=== PATIENT | male | born 1950 | race Caucasian/White ===

== ENCOUNTER 2019-10-09 05:52 | Day surgery (SDC) | payer MEDICARE, OTHER ==
[2019-10-03 17:01] LABS: BASOPHILS % (AUTO) 0.3 % (0-1); EOSINOPHILS # (AUTO) 0.3 X10'3 (0-0.9); EOSINOPHILS % (AUTO) 3.8 % (0-6); LYMPHOCYTES # (AUTO) 2.3 X10'3 (1.1-4.8); LYMPHOCYTES % (AUTO) 26.3 % (21-51); MEAN CORPUSCULAR HEMOGLOBIN 31.4 PG (27.0-31.0); MEAN CORPUSCULAR HGB CONC 34.4 g/dL (33.0-36.5); MEAN CORPUSCULAR VOLUME 91.3 FL (78-98); MEAN PLATELET VOLUME 8.1 FL (7.4-10.4); MONOCYTES # (AUTO) 0.6 X10'3 (0-0.9); MONOCYTES % (AUTO) 6.6 % (2-12); NEUTROPHILS # (AUTO) 5.5 X10'3 (1.8-7.7); PRE OP HEMATOCRIT 44.9 % (42.0-52.0); PRE OP HEMOGLOBIN 15.5 g/dL (14.0-17.9); PRE OP PLATELET COUNT 300 X10'3 (140-440); RED BLOOD COUNT 4.92 X10'6 (4.70-6.10); RED CELL DISTRIBUTION WIDTH 12.7 % (11.5-14.5)
[2019-10-03 17:09] LABS: PRE OP PROTIME 9.9 SECONDS (9.0-12.0)
[2019-10-03 17:13] LABS: ALBUMIN 3.5 G/DL (3.4-5.0); ALBUMIN/GLOBULIN RATIO 1.1 (1.1-1.5); ALKALINE PHOSPHATASE 75 IU/L (46-116); BLOOD UREA NITROGEN 16 MG/DL (7-18); BUN/CREATININE RATIO 11.1 (5.4-32.0); CALCIUM 8.4 MG/DL (8.5-10.1); CHLORIDE 106 MMOL/L (99-107); CREATININE 1.44 MG/DL (0.60-1.10); PRE OP ALT 20 U/L (30-65); PRE OP ANION GAP 9 (8-16); PRE OP AST 18 U/L (10-37); PRE OP BILIRUB, TOTAL 0.4 MG/DL (0.0-1.0); PRE OP GLUCOSE 111 MG/DL (70-104); PRE OP POTASSIUM 3.9 MMOL/L (3.4-5.1); PRE OP SODIUM 142 MMOL/L (135-145); TOTAL CARBON DIOXIDE 26.6 MMOL/L (24-32); TOTAL PROTEIN 6.8 G/DL (6.4-8.2); eGFR 49 ML/MIN
[2019-10-09] VITALS (23 sets, daily range): BP systolic 129–161; BP diastolic 64–96
[~2019-10-09] VITALS: Ht 182.9 cm; Wt 122.5 kg
[~2019-10-09 05:52] MED LIST: AMLO10TA PO; ATOR20TA PO; CLOP75TA35 PO; LISI40TA4 PO; famotidine 20mg tablet PO ONE; ringers solution, lacted 1,000 ML IV SCH
[2019-10-09] MEDS ORDERED: mupirocin 2% ointment 22GM ONE (06:44)
[2019-10-09] MEDS ORDERED: LIDOcaine 1% W/epiNEPHrine 1:100,000 20ml vial ONE (06:44)
[2019-10-09] MEDS ORDERED: methylPREDNISolone acetate 80mg/ml inj**IM only ONE (06:44)
[2019-10-09] MEDS ORDERED: triamcinolone acetonide 40mg/ml inj ONE (06:44)
[2019-10-09] MEDS ORDERED: cefTAZidime 1gm inj ONE (06:44)
[2019-10-09] MEDS ORDERED: cocaine 4% topical solution 4ml bottle ONE (06:44)
[2019-10-09] MEDS ORDERED: oxymetazoline 15 ML nasal spray NS ONE ×2 (06:45→06:56)
[2019-10-09] MEDS ORDERED: BUPIVAcaine 0.5% W/EPI /PF 30ml vial ONE (06:45)
[2019-10-09] MEDS ORDERED: propofol inj 20 ML IV ONE (08:08)
[2019-10-09] MEDS ORDERED: LIDOcaine 2% (20mg/ml) 5ml vial ONE (08:08)
[2019-10-09] MEDS ORDERED: rocuronium 10mg/ml inj IV ONE (08:09)
[2019-10-09] MEDS ORDERED: desflurane 240ml liquid inh. IH ONE (08:12)
[2019-10-09] MEDS ORDERED: acetaminophen 1000 MG/100ml vial IV ONE (08:12)
[2019-10-09] MEDS ORDERED: sevoflurane 250ml liquid IH ONE (08:12)
[2019-10-09] MEDS ORDERED: midazolam 2 mg/2 ml injection ONE (08:18)
[2019-10-09] MEDS ORDERED: fentaNYL /PF 50mcg/ml 5ml ampule ONE (08:19)
[2019-10-09] MEDS ORDERED: dexamethasone sod phosphate 4mg/ml inj. ONE (08:38)
[2019-10-09] MEDS ORDERED: ondansetron/PF 4mg/2ml inj ONE (08:54)
[2019-10-09] MEDS ORDERED: ePHEDrine 50MG/ML INJ. ONE (08:59)
[2019-10-09] MEDS ORDERED: ringers solution, lacted 1,000 ML IV SCH (09:04)
[2019-10-09] MEDS ORDERED: meperidine/PF 25mg/ml syringe IV PRN ×3 (09:05)
[2019-10-09] MEDS ORDERED: ondansetron/PF 4mg/2ml inj IV PRN (09:05)
[2019-10-09] MEDS ORDERED: proCHLORperazine 10 MG/2 ml inj IV PRN (09:05)
[2019-10-09] MEDS ORDERED: morphine 2 MG/ML inj. syringe IV PRN (09:05)
[2019-10-09] MEDS ORDERED: morphine 4 MG/ML inj SYRINge IV PRN (09:05)
--- NOTE | 2019-10-09 10:22 | NUR ---
RECIEVED FROM OR VIA GURNEY ACCOMPANIED BY ANESTHESIOLOGIST DR ROMAN, REPORT GIVEN. PT DROWSY BUT AWAKENS WITH STATED PAIN LEVEL OF 0. 20 GAUGE PIV R FA PATENT AND RUNNING LR AT 100 ML/HR. LARA, ABD SOFT, VSS, COTTENOID SPONGES IN BILATERAL NARES.
[2019-10-09] MEDS ORDERED: salt irrigation nasal spray 45 ML SPRAY NS PRN (10:40)
[2019-10-09] MEDS ORDERED: oxymetazoline 15 ML nasal spray NS SCH ×2 (10:59→20:00)
[2019-10-09] MEDS ORDERED: mupirocin 2% ointment 22GM TP SCH ×2 (11:00→13:00)
--- NOTE | 2019-10-09 14:02 | NUR ---
TRANSPORTED VIA WHEELCHAIR TO FRIEND IN PERSONAL VEHICLE TO HOME. DISCHARGE INSTRUCTIONS GIVEN AND PT VERBALIZED UNDERSTANDING.PT ALERT AND AWAKE WITH STATED PAIN LEVEL OF 0. 20 GAUGE PIV R FA D/CD WITH CATH TIP INTACT. LARA, ABD SOFT, VSS, MUSTACHE DRESSING WITH 4X4 WITH SCANT DRAINAGE. TOLERATING FLUIDS WELL, URINATING WELL, D/C CRITERIA MET.
== END 2019-10-09 14:02 | disposition home or self-care (01) ==
LOC: PAS 05:52
PROVIDERS: ATTEND Otolaryngology
DX: J34.2 Deviated nasal septum (principal); J34.3 Hypertrophy of nasal turbinates; J34.89 Other specified disorders of nose and nasal sinuses; J33.8 Other polyp of sinus; J32.8 Other chronic sinusitis; I10 Essential (primary) hypertension; E66.9 Obesity, unspecified; Z68.36 Body mass index [BMI] 36.0-36.9, adult; Z79.01 Long term (current) use of anticoagulants; Z79.899 Other long term (current) drug therapy; Z87.891 Personal history of nicotine dependence; Z86.73 Personal history of transient ischemic attack (TIA), and cerebral infarction without residual deficits; Z72.89 Other problems related to lifestyle; Z11.59 Encounter for screening for other viral diseases
CPT/HCPCS: 30140; 30520; 31240; 31254; 31267; 36415; 61782; 80053; 82948; 85025; 85576; 85610; 85730; 87635; A6402; C1726; C9250; J0131; J0713; J1040; J1100; J2001; J2250; J2405; J2704; J3010; J3301; J7040; J7120; 88300; 88304; 88311; A4618; A7000

== ENCOUNTER 2019-11-13 07:28 | Observation (INO) | payer MEDICARE, OTHER ==
[2019-11-06 14:07] LABS: BASOPHILS % (AUTO) 0.6 % (0-1); EOSINOPHILS # (AUTO) 0.2 X10'3 (0-0.9); EOSINOPHILS % (AUTO) 2.2 % (0-6); LYMPHOCYTES # (AUTO) 1.9 X10'3 (1.1-4.8); LYMPHOCYTES % (AUTO) 23.6 % (21-51); MEAN CORPUSCULAR HGB CONC 32.9 g/dL (33.0-36.5); MEAN CORPUSCULAR VOLUME 91.2 FL (78-98); MEAN PLATELET VOLUME 7.4 FL (7.4-10.4); MONOCYTES # (AUTO) 0.5 X10'3 (0-0.9); NEUTROPHILS # (AUTO) 5.3 X10'3 (1.8-7.7); NEUTROPHILS % (AUTO) 67.6 % (42-75); PRE OP HEMATOCRIT 42.8 % (42.0-52.0); PRE OP PLATELET COUNT 292 X10'3 (140-440); RED BLOOD COUNT 4.69 X10'6 (4.70-6.10); RED CELL DISTRIBUTION WIDTH 12.9 % (11.5-14.5)
[2019-11-06 14:16] LABS: ALBUMIN 3.8 G/DL (3.4-5.0); ALBUMIN/GLOBULIN RATIO 1.1 (1.1-1.5); ALKALINE PHOSPHATASE 83 IU/L (46-116); BLOOD UREA NITROGEN 16 MG/DL (7-18); BUN/CREATININE RATIO 11.3 (5.4-32.0); CHLORIDE 107 MMOL/L (99-107); CREATININE 1.42 MG/DL (0.60-1.10); PRE OP ALT 35 U/L (30-65); PRE OP ANION GAP 8 (8-16); PRE OP AST 19 U/L (10-37); PRE OP BILIRUB, TOTAL 0.6 MG/DL (0.0-1.0); PRE OP GLUCOSE 96 MG/DL (70-104); PRE OP POTASSIUM 4.2 MMOL/L (3.4-5.1); PRE OP SODIUM 142 MMOL/L (135-145); TOTAL CARBON DIOXIDE 26.6 MMOL/L (24-32); TOTAL PROTEIN 7.2 G/DL (6.4-8.2); eGFR 49 ML/MIN
[~2019-11-13] VITALS: Ht 182.9 cm; Wt 122.5 kg
[2019-11-13] VITALS (23 sets, daily range): BP systolic 124–156; BP diastolic 66–85
[2019-11-13] MEDS: mupirocin 2% nasal ointment 1gm UD NS SCH (08:00)
[2019-11-13] MEDS: oxymetazoline 15 ML nasal spray NS PRN ×5 (08:15→20:28)
[2019-11-13] MEDS ORDERED: ringers solution, lacted 1,000 ML IV SCH ×2 (09:05→09:07)
[2019-11-13] MEDS ORDERED: meperidine/PF 25mg/ml syringe IV PRN ×6 (09:05→09:10)
[2019-11-13] MEDS ORDERED: proCHLORperazine 10 MG/2 ml inj IV PRN ×2 (09:05→09:10)
[2019-11-13] MEDS ORDERED: ondansetron/PF 4mg/2ml inj IV PRN ×2 (09:05→09:10)
[2019-11-13] MEDS ORDERED: morphine 2 MG/ML inj. syringe IV PRN ×2 (09:05→09:10)
[2019-11-13] MEDS ORDERED: morphine 4 MG/ML inj SYRINge IV PRN ×2 (09:05→09:10)
[2019-11-13] MEDS ORDERED: methylPREDNISolone acetate 80mg/ml inj**IM only ONE (09:19)
[2019-11-13] MEDS ORDERED: cocaine 4% topical solution 4ml bottle ONE (09:19)
[2019-11-13] MEDS ORDERED: triamcinolone acetonide 40mg/ml inj ONE (09:19)
[2019-11-13] MEDS ORDERED: LIDOcaine 1% W/epiNEPHrine 1:100,000 20ml vial ONE (09:20)
[2019-11-13] MEDS ORDERED: mupirocin 2% ointment 22GM ONE (09:20)
[2019-11-13] MEDS ORDERED: oxymetazoline 15 ML nasal spray NS ONE (09:20)
[2019-11-13] MEDS ORDERED: BUPIVAcaine 0.5% W/EPI /PF 30ml vial ONE (09:20)
[2019-11-13] MEDS ORDERED: cefTAZidime 1gm inj ONE (09:20)
[2019-11-13] MEDS ORDERED: midazolam 2 mg/2 ml injection ONE (10:51)
[2019-11-13] MEDS ORDERED: fentaNYL /PF 50mcg/ml 5ml ampule ONE (10:52)
[2019-11-13] MEDS ORDERED: propofol inj 20 ML IV ONE (10:52)
[2019-11-13] MEDS ORDERED: LIDOcaine 2% (20mg/ml) 5ml vial ONE (10:52)
[2019-11-13] MEDS ORDERED: ondansetron/PF 4mg/2ml inj ONE (10:53)
[2019-11-13] MEDS ORDERED: rocuronium 10mg/ml inj IV ONE (10:53)
[2019-11-13] MEDS ORDERED: desflurane 240ml liquid inh. IH ONE (11:03)
[2019-11-13] MEDS ORDERED: dexamethasone sod phosphate 10mg/ml inj ONE (11:03)
[2019-11-13] MEDS ORDERED: ePHEDrine 50MG/ML INJ. ONE (12:10)
[2019-11-13] MEDS ORDERED: acetaminophen 1,000mg/100ml IV 100 ML IV ONE (12:17)
[2019-11-13] MEDS ORDERED: albumin (Human) 5% 250ml 250 ML IV ONE (12:17)
--- NOTE | 2019-11-13 12:52 | NUR ---
Received from OR via [facility], accompanied by Anesthesiologist DR DYKES and report given by Anesthesiologist. PT DROWSY, DENIES PAIN, BILAT COTTONNOIDS IN PTS NARES. Addendum: 11/13/19 at 1318 by Annel Albert RN Amended: Links added.
[2019-11-13] MEDS ORDERED: HYDROcodone/acetaminophen 5mg/325mg tablet PO PRN (13:20)
[2019-11-13] MEDS ORDERED: ondansetron 4mg rapidly disintigrating tab PO PRN (13:20)
[2019-11-13] MEDS: amLODIPine 5mg tablet PO SCH (13:20)
[2019-11-13] MEDS ORDERED: mupirocin 2% ointment 22GM TP SCH (13:20)
[2019-11-13] MEDS: lisinopril 20mg tablet PO SCH (14:22)
--- NOTE | 2019-11-13 14:26 | NUR ---
Patient in room . I have received report from CHRISTINA Up and had the opportunity to ask questions and assume patient care.
--- NOTE | 2019-11-13 14:42 | NUR ---
Report called to receiving nurse. Transferred via GURNEY, PT WAS ABLE TO TRANSFER OVER ONTO BED W/SLIDE BOARD W/O DIFFUCILTY, ALL Belongings AND GLASSES SENT W/PT TO ROOM 348A, RECEIVING RN AT BEDSIDE TO RECEIVE PT, BLL, CALL LIGHT GIVEN, SIDE RAILS UP X 2, D/C INSTUCTIONS GONE OVER W/PTS RN FOR TOMORROWS D/C. Special Issues communicated to receiving nurse.YES. Addendum: 11/13/19 at 1513 by Annel Albert RN Amended: Links added.
[2019-11-13] MEDS ORDERED: oxymetazoline 15 ML nasal spray NS PRN (16:15)
[2019-11-13] MEDS: salt irrigation nasal spray 45 ML SPRAY NS SCH ×5 (16:21→21:59)
[2019-11-13] MEDS ORDERED: oxymetazoline 15 ML nasal spray NS SCH (16:57)
--- NOTE | 2019-11-13 18:05 | NUR ---
Patient in room [facility]. I have received report from CHRISTINA Martin and had the opportunity to ask questions and assume patient care.
--- NOTE | 2019-11-13 18:48 | NUR ---
Problems reprioritized. Patient report given, questions answered & plan of care reviewed with Nyasia Garber RN. mild active nose bleeding. dressing changed x4. Dr Campos called in stating its expected to have nose bleeding until past 24hr of surgery time. Pt is expected to be going home tomorrow morning.
[2019-11-13] MEDS ORDERED: atorvastatin 20mg tablet PO SCH ×2 (21:00)
[2019-11-14] VITALS: BP 131/76
--- NOTE | 2019-11-14 00:18 | NUR ---
Notified MD that I have changed the nasal dressing several times tonight including three times this past hour as well as several clots being pulled from the nares. Updated as to BP 125/83 and a HR of 115. MD states to stop use of afrin and saline nasal spray and to expect the dressing to be changed several times per hour. Md does not want to increase fluid rate of LR @ 20; and does not want an H/H for the AM. Continue dressing changes as needed.
[2019-11-14] MEDS: mupirocin 2% nasal ointment 1gm UD NS SCH (02:12)
[2019-11-14 02:33] VITALS: BP 116/78
[2019-11-14 04:12] VITALS: BP 131/71
--- NOTE | 2019-11-14 04:13 | NUR ---
Patients nasal drainage has significantly dropped/stopped over the last hour. Last nasal dressing change at approximately 0300; very little drainage on current dressing.
[2019-11-14 04:30] VITALS: BP 130/72
--- NOTE | 2019-11-14 05:26 | NUR ---
Confirmed patient is not diabetic. Changed diet from CC to regular.
--- NOTE | 2019-11-14 06:10 | NUR ---
Patient in room [facility]. I have received report from Nyasia Garber RN and had the opportunity to ask questions and assume patient care.
--- NOTE | 2019-11-14 06:13 | NUR ---
Problems reprioritized. Patient report given, questions answered & plan of care reviewed with CHRISTINA Kaiser.
[2019-11-14 08:00] VITALS: BP 130/82
[2019-11-14] MEDS ORDERED: non-formulary drug (Lisinopril* 1 TAB) PO SCH (08:00)
[2019-11-14] MEDS ORDERED: non-formulary drug (Amlodipine Besylate 1 TABLET) PO SCH (08:00)
[2019-11-14 08:03] VITALS: BP_SYST 130
[2019-11-14] MEDS: lisinopril 20mg tablet PO SCH (08:03)
[2019-11-14] MEDS: amLODIPine 5mg tablet PO SCH (08:03)
--- NOTE | 2019-11-14 08:10 | NUR ---
Patient requested not to have his Mupirocin ointment given intranasal yet at this time because the nose just had stopped bleeding. Blood clots noted in the bilateral nasal cavity
--- NOTE | 2019-11-14 08:30 | NUR ---
Per Dr. Campos, patient is good to be discharge today. He asked me to ask one of the Recovery Room nurse to help with how to discharge this patient because they are familiar with discharging this type of patient. Annel VASQUEZ from PACU came by to give instruction to patient about saline rinsing and to follow the written discharge instruction that he will be receiving.
[2019-11-14] MEDS ORDERED: AFRIN NS (08:57)
[2019-11-14] MEDS ORDERED: MUPI1OIN5 NS (08:57)
[2019-11-14] MEDS ORDERED: SODI104S3 NS (08:57)
--- NOTE | 2019-11-14 09:45 | NUR ---
Discharged patient home. Discharge instructions given to patient, patient verbalized understanding of all instructions made. Written discharge instruction from the chart was reviewed with patient and included in the discharge paperworks. Peripheral IV catheter removed, tip intact. Patient able to demonstrate how to do saline rinsing of his nostrils appropriately. Patient was reminded not to bend during this procedure. Advised patient to ensure he follow up with Dr. Campos as scheduled. Instructed patient to ensure he has all his belongings with him before leaving the hospital.
--- NOTE | 2019-11-16 09:13 | NUR ---
Case Management DC follow up: spoke to pt via telephone. S/P: R & L Edmoidectomy, polyp removal. Reports: "feeling great, delighted, could not be happier with results, appreciate [facility], nice, helpful". Denies: nasal bleeding/clots, cp, SOB, resp distress, vertigo, syncope,weakness, blurry vision, N/V, ABAD, emergent general pain, abd tenderness/distension, fever. Verbalizes understanding of s/s that warrant 9-11/ER visit for evaluation. Verbalizes understanding of Rxand why prescribed, resumes current Rx/taking as ordered, no ase r/t polypharmacy. Acknowledges need to schedule/keep follow up appts w/Dr Campos 11/19/19 [id number]. Needs met, questions answered at DC, no further questions at this time.
== END 2019-11-14 09:45 | disposition home or self-care (01) ==
LOC: PAS 07:28 → SUR 3N 13:18
PROVIDERS: ADMIT Otolaryngology; ATTEND Otolaryngology
DX: Z03.818 Encounter for observation for suspected exposure to other biological agents ruled out (principal); J32.1 Chronic frontal sinusitis; J32.3 Chronic sphenoidal sinusitis; J32.2 Chronic ethmoidal sinusitis; J33.8 Other polyp of sinus; I10 Essential (primary) hypertension; G45.9 Transient cerebral ischemic attack, unspecified; Z79.899 Other long term (current) drug therapy
CPT/HCPCS: 31257; 36415; 80053; 82948; 85025; 85610; 85730; 87635; A6402; C9250; G0378; J0131; J0713; J1040; J1100; J2001; J2250; J2405; J2704; J3010; J3301; J7040; J7120; P9045; U0003; 88304; 88311; A4618; A7000

== ENCOUNTER 2023-01-17 13:02 | Emergency (ER) | payer MEDICARE, OTHER ==
[~2023-01-17] VITALS: Ht 182.9 cm; Wt 86.4 kg
[~2023-01-17 13:02] MED LIST changes: +AFRIN NS; -CLOP75TA35 PO; +LISI40TA13 PO; -LISI40TA4 PO; +MUPI1OIN5 NS; +SODI104S3 NS; +adenosine 3mg/ml 2ml vial IV ONE; -famotidine 20mg tablet PO ONE; -ringers solution, lacted 1,000 ML IV SCH
[2023-01-17] MEDS ORDERED: adenosine 3mg/ml 2ml vial IV ONE ×2 (13:35)
[2023-01-17] MEDS ORDERED: magnesium 2GM in 50ml NS 50 ML IV ONE (13:45)
[2023-01-17 14:00] LABS: MAGNESIUM 1.9 MG/DL (1.5-2.4); PRO BRAIN NATRIURETIC PEPTIDE 44 PG/ML (0-125)
[2023-01-17 14:14] LABS: BASOPHILS % (AUTO) 0.3 % (0-1); EOSINOPHILS # (AUTO) 0.1 X10'3 (0-0.9); EOSINOPHILS % (AUTO) 1.1 % (0-6); HEMATOCRIT 47.1 % (42.0-52.0); HEMOGLOBIN 15.6 g/dl (14.0-17.9); LYMPHOCYTES # (AUTO) 1.7 X10'3 (1.1-4.8); MEAN CORPUSCULAR HEMOGLOBIN 29.4 PG (27.0-31.0); MEAN CORPUSCULAR HGB CONC 33.1 g/dL (33.0-36.5); MEAN CORPUSCULAR VOLUME 88.7 FL (78-98); MEAN PLATELET VOLUME 8.3 FL (7.4-10.4); MONOCYTES # (AUTO) 0.9 X10'3 (0-0.9); MONOCYTES % (AUTO) 7.2 % (2-12); NEUTROPHILS # (AUTO) 9.6 X10'3 (1.8-7.7); NEUTROPHILS % (AUTO) 77.4 % (42-75); PLATELET COUNT 292 X10'3 (140-440); RED BLOOD COUNT 5.31 X10'6 (4.70-6.10); RED CELL DISTRIBUTION WIDTH 13.8 % (11.5-14.5); WHITE BLOOD COUNT 12.4 X10'3 (4.5-11.0)
[2023-01-17 14:21] LABS: APTT 30 SECONDS (22-32); PROTHROMBIN TIME 10.5 SECONDS (9.0-12.0)
[2023-01-17 14:57] LABS: ALANINE AMINOTRANSFERASE 47 U/L (12-78); ALBUMIN 3.9 G/DL (3.4-5.0); ALBUMIN/GLOBULIN RATIO 1.2 (1.1-1.5); ALKALINE PHOSPHATASE 100 IU/L (46-116); ANION GAP 12 (8-16); ASPARTATE AMINO TRANSFERASE 26 U/L (10-37); BILIRUBIN,TOTAL 0.5 MG/DL (0.1-1.0); BLOOD UREA NITROGEN 20 MG/DL (7-18); BUN/CREATININE RATIO 12.7 (10.0-20.0); CHLORIDE 102 MMOL/L (99-107); CREATININE 1.58 MG/DL (0.60-1.10); GLUCOSE 123 MG/DL (70-104); POTASSIUM 3.8 MMOL/L (3.5-5.1); SODIUM 139 MMOL/L (135-145); TOTAL CARBON DIOXIDE 25.1 MMOL/L (24-32); TOTAL PROTEIN 7.2 G/DL (6.4-8.2); eCRCL 46 ML/MIN; eGFR 43 ML/MIN
[2023-01-17 15:12] LABS: C-REACTIVE PROTEIN < 0.05 MG/DL (0.0-0.5)
[2023-01-17 15:24] VITALS: BP 130/79; PULSE 95; RESP 14; TEMP 98.3
--- NOTE | 2023-01-17 15:25 | NUR ---
Approx 1340 Hours 6 mg Adenosine rapid IVP for SVT without change Approx 1345 Hours 12 mg Adenosine rapid IVP for SVT with positive conversion to normal sinus rhythm with PVC's. Patient reports relief.
[2023-01-17 15:59] VITALS: O2SAT 98
== END 2023-01-17 16:01 | disposition home or self-care (01) ==
LOC: ER 13:02
DX: I47.1 Supraventricular tachycardia (principal); E11.9 Type 2 diabetes mellitus without complications; Z79.899 Other long term (current) drug therapy
CPT/HCPCS: 36415; 71045; 80053; 83735; 83880; 84484; 85025; 85610; 85730; 86140; 93005; 96365; 96366; 99291; J0153; J3475; J7030